=== PATIENT | female | born 1955 | race Caucasian/White ===

== ENCOUNTER 2019-09-07 00:57 | Observation (INO) | payer SELFPAY ==
[2019-09-07] MEDS ORDERED: Fentanyl 100 MCG/2 ML VIAL ONE (01:20)
[2019-09-07] MEDS ORDERED: Ondansetron ODT 4 MG TAB SL PRN (03:32)
[2019-09-07] MEDS ORDERED: Ondansetron PF 4 MG/2 ML Vial IVP PRN ×2 (03:32→14:16)
[2019-09-07] MEDS ORDERED: Fentanyl 100 MCG/2 ML VIAL SLOW IVP PRN (03:33)
[2019-09-07] MEDS ORDERED: Senokot S 8.6-50 MG TAB PO PRN (03:50)
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
[2019-09-07 04:09] VITALS: BMI 32.4
[2019-09-07] MEDS ORDERED: ALPRAZolam 1 MG TAB PO SCH (04:15)
[2019-09-07] MEDS: HYDROcodone/Acetaminophen 5/325 mg Tablet PO PRN ×4 (04:32→20:10)
[2019-09-07 05:50] LABS: Lactic Acid 0.9 mmol/L (0.5-2.2)
[2019-09-07] MEDS: Famotidine/PF 20 mg/2ml Vial SLOW IVP SCH ×2 (08:02→20:05)
[2019-09-07] MEDS: ALPRAZolam 1 MG TAB PO SCH ×3 (08:02→20:05)
[2019-09-07] MEDS ORDERED: Cefepime 2 GM in Sodium Chloride 0.9% 100 ML IVPB SCH (09:00)
[2019-09-07] MEDS ORDERED: Lorazepam 2 MG/ML VIAL SLOW IVP SCH (09:45)
[2019-09-07] MEDS ORDERED: Zolpidem Tartrate 5 MG TAB PO PRN (14:16)
--- NOTE | 2019-09-07 14:39 | RAD ---
Exam: XR Tib Fib Rt Leg 2 View HISTORY: Prior fracture with draining fistula lateral aspect of the distal right lower extremity. COMPARISON: None FINDINGS: There is diffuse osteopenia. There is a large area of sclerosis involving the lateral femoral condyle . Prominent joint space narrowing is present, and there is subchondral irregularity involving the lateral femoral condyle. Area of sclerosis with associated lucency in the lateral femoral condyle may be posttraumatic in origin, and findings may be secondary to bone infarction/osteonecrosis. There are lucencies and sclerosis seen in the medial tibial plateau and involving the medial femoral condyl e which may be degenerative in origin and related to subchondral cystic changes. Remote fractures involving the proximal tibia and fibula with remote fracture involving the mid diaph ysis of the fibula. Area of irregular sclerosis and lucency is seen in the calcaneus which may represent bone infarction in this region. No acute fracture or dislocation is seen. Calcifications are seen in the subcutaneous soft tissues greater just medial to the proximal metadiap hysis of the tibia. Subcutaneous soft tissue swelling is seen at the lateral right ankle. IMPRESSION: 1. No acute osseous abnormality is identified. 2. Diffuse osteopenia. 3. Findings probably attributable to bone infarction/osteonecrosis involving the right lateral femora l condyle with subchondral irregularity of the lateral femoral condyle likely posttraumatic in origin versus severe degenerative changes. 4. Remote fractures involving the right tibia and fibula. 5. Probable area of bone infarction in the posterior process of the calcaneus. 6. No osseous destruction is identified. No acute fracture is seen. 7. Subcutaneous soft tissue swelling lateral aspect of the ankle.
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
--- NOTE | 2019-09-07 16:18 | PDOC.HOSPP ---
- Subjective Encounter Date: 09/07/19 Encounter Time: 13:45 Subjective: pt up in chair no complains of pain to her right lower ext. - Objective Vital Signs & Weight: Vital Signs (12 hours) Temp Pulse Resp BP BP Pulse Ox 09/07/19 15:33 98.2 F 74 14 125/57 L 93 L 09/07/19 11:32 98.3 F 74 14 108/68 95 09/07/19 08:00 98.3 F 79 16 130/87 96 09/07/19 07:50 98.3 F 79 14 130/87 96 Weight Admit Weight 189 lb 2.506 oz Weight 189 lb 2.506 oz I&O: 09/06/19 09/07/19 09/08/19 06:59 06:59 06:59 Intake Total 500 Output Total 500 Balance 0 Hospitalist ROS - Review of Systems Cardiovascular: denies: chest pain, palpitations, orthopnea, paroxysmal noc. dyspnea, edema, light headedness, other Gastrointestinal: denies: nausea, vomiting, abdominal pain, diarrhea, constipation, melena, hematochezia, other Genitourinary: denies: dysuria, frequency, incontinence, hematuria, retention, other - Medication Medications: Active Medications Generic Name Dose Route Start Last Admin Trade Name Freq PRN Reason Stop Dose Admin Hydrocodone Bitart/Acetaminophen 1 tab 09/07/19 03:50 09/07/19 16:08 Reagan 5/325 PO 1 tab Q4H PRN Administration Moderate Pain (4-6) Alprazolam 1 mg 09/07/19 09:00 09/07/19 14:12 Xanax PO 1 mg TID ARUNA Administration Famotidine 20 mg 09/07/19 09:00 09/07/19 08:02 Pepcid SLOW IVP 20 mg Q12HR ARUNA Administration Cefepime HCl 2 gm/ Sodium 100 mls @ 200 mls/hr 09/07/19 09:00 09/07/19 08:00 Chloride IVPB 100 mls Q12HR ARUNA Administration - Exam Neck: negative: supple, symmetric, no JVD, no thyromegaly, no lymphadenopathy, no carotid bruit, JVD Heart: negative: RRR, no murmur, no gallops, no rubs, normal peripheral pulses, irregular, diminshed peripheral pulses, murmur present, II/IV, III/IV Respiratory: negative: CTAB, no wheezes, no rales, no ronchi, normal chest expansion, no tachypnea, normal percussion, rales, rhonchi, tachypneic, wheezes Gastrointestinal: negative: soft, non-tender, non-distended, normal bowel sounds , no palpable masses, no hepatomegaly, no splenomegaly, no bruit, no guarding, no rigidity, tender to palpation, distended, diminished bowl sounds, voluntary guarding Extremities - other findings: mild lower ext edema bilaterally, venous stasis changes Skin - other findings: she has a right heel ulcer and old scar to right leg. Hosp A/P (1) Anxiety Code(s): F41.9 - ANXIETY DISORDER, UNSPECIFIED Status: Acute (2) Cellulitis of right leg Code(s): L03.115 - CELLULITIS OF RIGHT LOWER LIMB Status: Acute (3) Tobacco use Code(s): Z72.0 - TOBACCO USE Status: Acute - Plan pt on abx, she has no elevated wbc. mri ordered and ID consulted. will stop abx for now. pt has been advised against smoking and will start her on a nicotine patch.
[2019-09-07] MEDS: Nicotine 7 MG PATCH TD SCH (17:32)
--- NOTE | 2019-09-07 18:45 | MRI ---
RIGHT LOWER EXTREMITY MRI WITHOUT IV CONTRAST: 09/07/19 Multiplanar and multisequence MRI examination is performed with attention to the lower leg, ankle and hindfoot. Motion artifact considerably lowers the sensitivity of this study. Additionally, the very large field of view used to obtain these images also lowers the sensitivity of this study. There is extensive diffuse subcutaneous edema particularly dorsally and medially and laterally. There is some focal superficial soft tissue altered signal overlying the posterior calcaneus. There is a 1 .3 x 2.6 cm diameter focal bone infarct within the calcaneus posteriorly. The plantar fascia and Achi lles tendons appear intact. The visualized flexor, extensor, and peroneus tendons appear intact. Sinu s tarsi and spring ligament regions appear unremarkable. No evidence for talar dome osteochondral les ion. There is considerable muscle wasting of the visualized lower leg. IMPRESSION: No evidence of osteomyelitis or abscess. Evidence for a focal bone infarct in the posterior calcaneus . Severe diffuse muscle wasting of the lower extremity. Diffuse subcutaneous edema and fat stranding. POS: RRE
[2019-09-08] MEDS: HYDROcodone/Acetaminophen 5/325 mg Tablet PO PRN ×3 (01:44→14:52)
[2019-09-08 04:54] LABS: #Eosinphils 0.2 thou/uL (0.0-0.7); #Lymphocytes 2.3 thou/uL (1.20-3.40); #Monocytes 0.6 thou/uL (0.11-0.59); #Neutrophils 1.9 thou/uL (1.40-6.50); %Basophils 0.6 % (0.0-1.0); %Eosinophils 4.9 % (0.0-10.0); %Lymphocytes 45.8 % (21.0-51.0); %Monocytes 11.1 % (0.0-10.0); %Neutrophils 37.6 % (42.0-75.0); Hemoglobin 10.7 g/dL (12.0-16.0); Mean Corpuscular HGB CONC 33.3 g/dL (32.0-36.0); Mean Corpuscular Hemoglobin 30.4 pg (27.0-31.0); Mean Corpuscular Volume 91.2 fL (78.0-98.0); Mean Platelet Volume 7.8 fL (7.4-10.4); Platelet Count 238 thou/uL (130-400); Red Blood Cell (RBC) Count 3.51 mill/uL (4.20-5.40)
[2019-09-08 05:01] LABS: Anion Gap 10 mmol/L (10-20); BUN (Urea Nitrogen) 19 mg/dL (9.8-20.1); Calc. Creatinine Clearance 73 mL/min (70-130); Calcium 9.2 mg/dL (7.8-10.44); Carbon Dioxide 27 mmol/L (23-31); Chloride 104 mmol/L (98-107); Estimated GFR-MDRD 54; Glucose 77 mg/dL (80-115); Potassium 4.1 mmol/L (3.5-5.1); Sodium 137 mmol/L (136-145)
[2019-09-08] MEDS: Famotidine/PF 20 mg/2ml Vial SLOW IVP SCH (08:41)
[2019-09-08] MEDS: ALPRAZolam 1 MG TAB PO SCH ×2 (08:41→14:55)
[2019-09-08 12:48] VITALS: BP 136/80; TEMP 97.5
[2019-09-08] MEDS: Nicotine 7 MG PATCH TD SCH (14:55)
[2019-09-08] MEDS ORDERED: Benzonatate 100 MG CAP PO PRN (15:29)
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
== END 2019-09-08 18:14 | disposition home or self-care (01) ==
LOC: ERS 00:57 → T4-B 02:08
PROVIDERS: ADMIT Internal Medicine Sleep Medicine; ATTEND Internal Medicine
DX: L89.619 Pressure ulcer of right heel, unspecified stage (principal); L08.9 Local infection of the skin and subcutaneous tissue, unspecified; F41.9 Anxiety disorder, unspecified; F17.210 Nicotine dependence, cigarettes, uncomplicated; Z79.899 Other long term (current) drug therapy; Z88.1 Allergy status to other antibiotic agents; Z88.2 Allergy status to sulfonamides; Z88.5 Allergy status to narcotic agent; Z88.8 Allergy status to other drugs, medicaments and biological substances
CPT/HCPCS: 80048; 83605; 85025; 96374; 96375; 96376; G0378; J0692; J2060; J2405; J3010; J3490; S0028

== ENCOUNTER 2019-10-01 14:15 | Emergency (ER) | payer MEDICAID, SELFPAY ==
--- NOTE | 2019-10-01 15:46 | RAD ---
SINGLE VIEW OF THE CHEST: COMPARISON: None. HISTORY: Confusion with headache and altered mental status. FINDINGS: A single view of the chest shows a normal-size cardiomediastinal silhouette. There is a left-sided M ediPort with its tip in the superior vena cava. There is no evidence of consolidation, mass, or pleu ral effusion. Increased interstitial lung markings are seen. Degenerative changes are seen in the s pine. IMPRESSION: No evidence of acute cardiopulmonary disease. POS: [facility]
[2019-10-01 15:52] LABS: #Lymphocytes 2.3 thou/uL (1.20-3.40); #Monocytes 0.8 thou/uL (0.11-0.59); #Neutrophils 5.5 thou/uL (1.40-6.50); %Basophils 0.1 % (0.0-1.0); %Eosinophils 0.4 % (0.0-10.0); %Monocytes 9.2 % (0.0-10.0); %Neutrophils 63.2 % (42.0-75.0); Mean Corpuscular HGB CONC 33.8 g/dL (32.0-36.0); Mean Corpuscular Hemoglobin 30.2 pg (27.0-31.0); Mean Corpuscular Volume 89.4 fL (78.0-98.0); Mean Platelet Volume 8.5 fL (7.4-10.4); Platelet Count 284 thou/uL (130-400); RBC Distribution Width 14.7 % (11.5-14.5); Red Blood Cell (RBC) Count 3.96 mill/uL (4.20-5.40); White Blood Cell (WBC) Count 8.6 thou/uL (4.8-10.8)
--- NOTE | 2019-10-01 15:53 | CT ---
CT BRAIN WITHOUT CONTRAST: HISTORY: Altered mental status FINDINGS: No evidence of acute infarct, hemorrhage, midline shift or abnormal extra-axial fluid collections is seen. 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 There are changes of chronic small vessel ischemic disease in the periventricular white matter. The ventricular size is ap propriate and the basilar cisterns are patent. The bony calvarium is intact. The mastoid air cells are well aerated. There is mucosal disease in the paranasal sinuses. IMPRESSION: No CT evidence of acute intracranial process.
[2019-10-01] MEDS ORDERED: Ondansetron PF 4 MG/2 ML Vial ONE (15:56)
[2019-10-01 16:20] LABS: ALT (SGPT) 16 U/L (8-55); AST (SGOT) 20 U/L (5-34); Albumin 3.6 g/dL (3.4-4.8); Alkaline Phosphatase 134 U/L (40-110); Anion Gap 14 mmol/L (10-20); BUN (Urea Nitrogen) 23 mg/dL (9.8-20.1); Bilirubin, Total 0.4 mg/dL (0.2-1.2); Calc. Creatinine Clearance 0 mL/min (70-130); Calcium 9.5 mg/dL (7.8-10.44); Carbon Dioxide 21 mmol/L (23-31); Chloride 104 mmol/L (98-107); Estimated GFR-MDRD 48; Globulin 4.6 g/dL (2.4-3.5); Glucose 94 mg/dL (80-115); Potassium 3.9 mmol/L (3.5-5.1); Protein, Total 8.2 g/dL (6.0-8.3); Sodium 135 mmol/L (136-145)
[2019-10-01] MEDS ORDERED: Acetaminophen 500 MG TAB ONE (19:41)
== END 2019-10-01 21:07 | disposition short-term general hospital (02) ==
LOC: ERS 14:15
DX: R41.82 Altered mental status, unspecified (principal); R51 Headache; F17.210 Nicotine dependence, cigarettes, uncomplicated; F41.9 Anxiety disorder, unspecified; Z79.899 Other long term (current) drug therapy
CPT/HCPCS: 70450; 71045; 80053; 83605; 85025; 87040; 93005; 96361; 96374; J2405